=== PATIENT | female | born 1950 | race Caucasian/White ===

== ENCOUNTER 2016-10-16 21:41 | Emergency (ER) | payer OTHER ==
[~2016-10-16] VITALS: Ht 152.4 cm; Wt 92.4 kg
[~2016-10-16 21:41] MED LIST: ANTIDEPRESSANT; CALTRATE 600600 MG PO; CITALOPRAM HBR20 MG PO; FLOMAX0.4 MG PO; LISINOPRIL20 MG PO; NORVASC10 M1 PO; OMEGA 3 1,0001 EACH PO; PERCOCET 5/31 TABLET PO; PROAIR HFA8.5 GM IH; ST. JOSEPH ASPI81 MG PO; VITAMIN D400 UNI1 PO; WELLBUTRIN; ZOCOR20 MG PO; ZOFRAN4 MG PO
[2016-10-16 23:00] LABS: ADD MIUA? YES; BILIRUBIN NEGATIVE; BLOOD LARGE; COLOR YELLOW ((YELLOW)); GLUCOSE (STRIP) NEGATIVE; KETONES NEGATIVE; LEUKOCYTES TRACE; NITRITE NEGATIVE; PROTEIN (STRIP) NEGATIVE; SPECIFIC GRAVITY 1.015 (1.000-1.030); UROBILINOGEN 0.2 MG/DL (0.2-1.0)
[2016-10-16 23:11] LABS: BACTERIA NONE SEEN /HPF; EPITHELIAL CELLS RARE /HPF; HYALINE CASTS 0-5 /LPF; MUCUS TRACE /LPF; RED BLOOD CELLS TNTC /HPF (0-5); UCUL ADDED? NO
[2016-10-16 23:16] LABS: HEMATOCRIT 37.4 % (36.0-46.0); MCH 30.2 PG (29.0-34.0); MCHC 32.6 G/DL (30.0-36.0); MCV 92.6 FL (83-99); MEAN PLAT.VOLUME 10.8 uM^3 (9.5-12.4); PLATELET COUNT 265 K/uL (156-360); RBC DIS.WIDTH-CV 12.7 % (11.8-14.6); RBC DIS.WIDTH-SD 43.5 % (39-53); RED BLOOD COUNT 4.04 M/uL (3.80-5.20); WHITE BLOOD COUNT 8.9 K/uL (4.1-10.2)
[2016-10-16 23:25] LABS: CHLORIDE 106 mEq/L (99-109); POTASSIUM 4.2 mEq/L (3.7-5.4)
[2016-10-16 23:26] LABS: SODIUM 140 mEq/L (136-147)
[2016-10-16 23:28] LABS: GLUCOSE 93 mg/dL (70-99)
[2016-10-16 23:29] LABS: ANION GAP 10 MEQ/L (2-14)
[2016-10-16 23:30] LABS: TOTAL BILIRUBIN 0.3 mg/dL (0.0-1.0)
[2016-10-16 23:31] LABS: ALKALINE PHOSPHATASE 57 IU/L (3-129); GFR ESTIMATE (CALCULATED) > 59 mL/min/
[2016-10-16 23:33] LABS: UREA NITROGEN (BUN) 21 mg/dL (9-23)
[2016-10-16] MEDS ORDERED: NORCO 5/3251 TABLET PO (23:34)
[2016-10-16] MEDS ORDERED: ZOFRAN ODT4 MG PO (23:34)
[2016-10-16] MEDS ORDERED: KEFLEX500 MG PO (23:34)
[2016-10-17 00:02] VITALS: BP 148/80
== END 2016-10-17 00:05 | disposition home or self-care (01) ==
LOC: EME 21:41 → EXP 21:41
PROVIDERS: Physician Assistant
DX: N20.0 Calculus of kidney (principal); N39.0 Urinary tract infection, site not specified; I10 Essential (primary) hypertension; E11.9 Type 2 diabetes mellitus without complications; Z87.442 Personal history of urinary calculi; Z88.6 Allergy status to analgesic agent
CPT/HCPCS: 74176; 80053; 81003; 85027; 99281; 99285; J0696; J1885; J2405; J7030; J7050